=== PATIENT | male | born 1975 | race Caucasian/White ===

== ENCOUNTER 2024-03-29 09:59 | Emergency (ER) | payer OTHER ==
[~2024-03-29] VITALS: Ht 170.2 cm; Wt 95.0 kg
[2024-03-29 10:53] VITALS: BP 129/73
[2024-03-29 10:55] LABS: URINE BILIRUBIN - DIPSTICK Negative (NEGATIVE); URINE BLOOD DIPSTICK Trace-lysed (NEGATIVE); URINE GLUCOSE - DIPSTICK >=1000 mg/dL (NEGATIVE); URINE KETONE Negative (NEGATIVE); URINE LEUK ESTERASE Negative (NEGATIVE); URINE NITRITE - DIPSTICK Negative (Negative); URINE PROTEIN - DIPSTICK Negative (NEG-TRACE); URINE UROBILINOGEN - DIPSTICK 0.2 E.U./dL (0.2)
[2024-03-29 10:57] LABS: BASO% 0.4 % (0-3); EOS% 4.1 % (0-8); HEMATOCRIT 49.3 % (39.0-50.0); HEMOGLOBIN 17.2 g/dl (14.0-18.0); IMMATURE GRANULOCYTES 0.1 % (0.0-5.0); LYMPH% 22.2 % (15-41); MEAN CELL VOLUME 94.3 fL CALC (80.0-100.0); MEAN CORPUSCULAR HGB 32.9 pG CALC (26.0-32.0); MEAN CORPUSCULAR HGB CONC 34.9 g/dL CAL (32.0-36.0); MONO% 10.4 % (2-13); NEUT# 4.29 thou/uL (1.82-7.42); NEUT% 62.8 % (42-76); RED BLOOD COUNT 5.23 mill/uL (4.70-6.10); RED CELL DISTRI WIDTH 11.8 % (11.5-15.5)
[2024-03-29 11:06] LABS: URINE COLOR Yellow
[2024-03-29] MEDS ORDERED: KETOROLAC TROMETHAMINE 30 MG/ML SDV IM ONE (11:10)
[2024-03-29 11:12] LABS: ALBUMIN 4.3 g/dL (3.2-5.0); BILIRUBIN, TOTAL 0.7 mg/dL (0.2-1.3); CREATININE 0.8 mg/dL (0.7-1.3); POTASSIUM 4.4 mmol/l (3.5-5.1); TOTAL PROTEIN 7.5 g/dL (6.3-8.2)
[2024-03-29] MEDS ORDERED: METFORMIN HCL500 M1 PO (11:34)
[2024-03-29] MEDS ORDERED: INSULIN REGULAR (HUMAN) 100 UNIT/ML INJ IV ONE (11:35)
[2024-03-29] MEDS ORDERED: SODIUM CHLORIDE 0.9% 1,000 ML IV ONE (11:35)
[2024-03-29] MEDS ORDERED: NAPROXEN500 MG PO (12:55)
[2024-03-29 12:59] VITALS: BP 124/77
[2024-03-29 13:15] VITALS: BP 136/77
[2024-03-29 13:31] VITALS: BP 144/83
[2024-03-29 13:54] VITALS: BP 144/85
== END 2024-03-29 14:10 | disposition home or self-care (01) | DRG 552 ==
LOC: ED 09:59
PROVIDERS: Family Medicine
DX: M54.50 Low back pain, unspecified (principal); E11.9 Type 2 diabetes mellitus without complications